=== PATIENT | female | born 1980 | race African-American/Black ===

== ENCOUNTER → 2016-04-18 | Outpatient (CLI) | payer MEDICAID ==
[~2016-04-18] MED LIST: TRAM50TA PO
[2016-04-18 10:07] LABS: MEAN CORPUSCULAR HGB CONC 29.4 % (32.0-36.0)
[2016-04-18 10:46] LABS: BLOOD, URINE LARGE (NEG); COMMENT (UR) CULTURE INDICATED; CULTURE IF INDICATED CULTURE INDICATED; GLUCOSE,URINE NEG (NEG); KETONE, URINE TRACE mg/dL (NEG); NITRITE,URINE NEG (NEG); PH, URINE 5.5 (5.0-8.5); SQUAMOUS EPITHELIAL CELL URINE 3 /hpf (0-5)
[2016-04-18 10:47] LABS: URINE COLOR LIGHT-RED (YELLW/STRAW)
[2016-04-18 10:49] LABS: AUTOMATED NEUTROPHIL # 4.2 TH/MM3 (1.8-7.7); BASOPHIL # 0.1 TH/MM3 (0-0.2); BASOPHIL % 1.2 % (0.0-2.0); EOSINOPHIL # 0.2 TH/MM3 (0-0.4); EOSINOPHIL % 3.7 % (0.0-4.0); HEMATOCRIT 23.2 % (35.0-46.0); LYMPH % 21.8 % (9.0-44.0); LYMPHOCYTE # 1.3 TH/MM3 (1.0-4.8); MEAN CELL VOLUME 67.8 FL (80.0-100.0); MEAN CORPUSCULAR HEMOGLOBIN 19.9 PG (27.0-34.0); NEUT % 67.3 % (16.0-70.0); PLATELET COUNT 374 TH/MM3 (150-450); RED BLOOD COUNT 3.42 MIL/MM3 (4.00-5.30); RED CELL DISTRIBUTION WIDTH 22.1 % (11.6-17.2); WHITE BLOOD COUNT 6.2 TH/MM3 (4.0-11.0)
[2016-04-18 10:55] LABS: HEMO FLAGS AUTO DIFF
[2016-04-18 11:18] LABS: ALKALINE PHOSPHATASE 81 U/L (45-117); ALT (GPT) 16 U/L (10-53); ANION GAP 8 MEQ/L (5-15); AST (GOT) 15 U/L (15-37); BICARBONATE 25.4 MEQ/L (21.0-32.0); BLOOD UREA NITROGEN 9 MG/DL (7-18); CHLORIDE 106 MEQ/L (98-107); GLOMERULAR FILTRATION RATE 100 ML/MIN (>89); GLUCOSE,FASTING 95 MG/DL (74-99); SODIUM (NA) 139 MEQ/L (136-145); TOTAL BILIRUBIN ADULT 0.3 MG/DL (0.2-1.0)
[2016-04-18 11:19] LABS: BHCG SCREEN QUALITATIVE LESS THAN 1 MIU/ML (0-5)
[2016-04-18 12:00] LABS: POLYCHROMASIA 2.2 % (0.0-1.9)
[2016-04-18 12:01] LABS: OVALOCYTES 1+ (NORMAL); SCAN/DIFF AUTO DIFF CONFIRMED; TEARDROP RBCS 1+ (NORMAL)
== END ==
LOC: CPRE 10:00
PROVIDERS: ATTEND Obstetrics & Gynecology Gynecology
DX: Z01.812 Encounter for preprocedural laboratory examination (principal); N93.8 Other specified abnormal uterine and vaginal bleeding
CPT/HCPCS: 36415; 80053; 81001; 84703; 85025; 87086

== ENCOUNTER → 2016-04-21 | Day surgery (SDC) | payer MEDICAID ==
--- NOTE | 2016-04-18 11:17 | MH ---
cc: IDANIA ULLOA,PAULINA SALCIDO,LYNNE GOFF,GUMARO Willis MD DATE OF ADMISSION 04/21/2016 DATE OF 1980 REASON FOR ADMISSION Hysteroscopy and IUD placement. HISTORY The patient is a 36-year-old black female 2, para 1 with a history of dysfunctional uterine bleeding to the point in which she has had to have multiple blood transfusions. She wants to keep her options for further and is not a candidate for hysterectomy or ablation. She also has a history of uterine fibroids and she is status post prior myomectomy. PAST MEDICAL HISTORY Negative for heart, lung, liver disease, hypertension, diabetes, or stroke. PAST SURGICAL HISTORY Abdominal myomectomy OBSTETRICAL HISTORY One vaginal delivery. GYNECOLOGIC HISTORY No STD's or abnormal Pap smears. Periods are once a month and heavy. SOCIAL HISTORY Jonathan has a good social support. No alcohol or drugs. Works full-time. FAMILY HISTORY Contributory ALLERGIES None MEDICATIONS None REVIEW OF SYSTEMS As above. No chest pain, orthopnea, PND, nausea, vomiting, fevers or chills. No vaginal discharge. Heavy menstrual cycles as noted above. PHYSICAL EXAM On her exam, she is afebrile, vital signs stable. VITAL SIGNS: Blood pressure is 120/70. Height 5.3, weight is 187, BMI is 33. The patient's blood pressure is 140/70. GENERAL: The patient alert and oriented no acute distress. No sign of cognitive function or depression. HEENT: Within normal limits. NECK: Supple. No JVD. CHEST: Clear. HEART: Regular rate and rhythm. ABDOMEN: Soft and nontender. No hepatosplenomegaly. No CVA tenderness. PELVIC: Will be detailed under anesthesia. EXTREMITIES: Normal skin without rashes. NEUROLOGIC: Exam nonfocal. No DVT signs. Ultrasound imaging shows a 6 cm fundal fibroid not impinging upon the endometrial cavity. Pap smear March 2016 normal with no signs of intraepithelial lesion or malignancy, HPV negative, Chlamydia and gonorrhea negative. ASSESSMENT Patient with dysfunctional bleeding unresponsive to medicinal therapy wants to maintain fertility options. At this point, we discussed extensively the options for management and treatment. She wants to proceed with hysteroscopy and either Mirena or a Ernestina IUD. We discussed the risks, benefits and alternatives of the planned procedure including damage to surrounding organs, bleeding, infection, possibility that bleeding may not be remedied, also possible damage to surrounding organs. The patient has made an informed choice to proceed. We will check her hematocrit prior to surgery. She was known to have a hemoglobin of 6.7 back in March, suspect this is probably about the same level if not a little bit lower. She is not symptomatic and has tolerated low hematocrits before and unless her hematocrit is below 18, I would not transfuse her at this point. We use antibiotic prophylaxis with Ancef 1 gram IV and sequential compression device for DVT prophylaxis. Anticipate outpatient procedure. MD CAROL Rosas/JONNATHAN /10:59 AM /11:07 AM
[~2016-04-21] VITALS: Ht 160 cm; Wt 86.0 kg
[~2016-04-21] MED LIST changes: +ACETAMINOPHEN 1000 MG/100 ML VIAL IV ONE; +DEXAMETHASONE SOD PHOS 4 MG/ML VIAL ONE; +FAMOTIDINE 20 MG/2 ML VIAL ONE; +INSULIN HUMAN REGULAR 1,000 UNITS/10 ML VIAL SQ PRN; +KETOROLAC TROMETHAMINE 60 MG/2 ML (IM) VIAL IM ONE; +LACTATED RINGER'S 1000 ML IV SCH; +METOCLOPRAMIDE HCL 10 MG/2 ML VIAL ONE; +METOPROLOL TARTRATE 25 MG TAB PO PRN; +MIDAZOLAM HCL 2 MG/2 ML VIAL ONE; +ONDANSETRON HCL 4 MG/2 ML VIAL IV PUSH ONE; +PROPOFOL 200 MG/20 ML AMP IV ONE; +SODIUM CHLORID 0.9% 500 ML IV SCH; +ceFAZolin 1,000 MG/NS 100 ML IV SCH; +fentaNYL CITRATE 250 MCG/5 ML AMP ONE
[2016-04-21 06:27] VITALS: BP 153/89; PULSE 96; RESP 16; TEMP 98.3; O2SAT 100
[2016-04-21 10:05] VITALS: BP 133/82; PULSE 82; RESP 16; TEMP 98.9; O2SAT 99
--- NOTE | 2016-04-25 17:48 | MP ---
cc: NIA ARAUJO,PAULINA RONDON DATE OF SURGERY 04/21/16 PREOPERATIVE DIAGNOSES Dysfunctional bleeding unresponsive to medicinal therapy. POSTOPERATIVE DIAGNOSES Dysfunctional bleeding unresponsive to medicinal therapy. PROCEDURE 1. Hysteroscopy D&C next 2. Mirena IUD placement. SURGEON Wilma Brink MD ANESTHESIA Laryngeal mask BLOOD LOSS Less than 5 mL URINE OUTPUT 100 mL prior to case management specialist [place] staff x1 FLUIDS 1000 crystalloid. FINDINGS Genitalia normal pop Q score Aa is -1, Ap is -1, point C -4, total vaginal length is 10, genital hiatus is eight. Perineal body is 4. Uterus sounds to 10 cm. Uterus is anteverted with palpable uterine fibroids. Hysteroscopy shows normal endometrial cavity with lush endometrium, but no sign of any intrusion by fibroids or polyps. SPECIMENS Endometrial curettage. COMPLICATIONS None DISPOSITION Recovery room stable COUNTS: Needle, sponge count correct. DRAINS None DISPOSITION Recovery room stable. PROPHYLAXIS Antibiotic prophylaxis Ancef 1 gram, DVT prophylaxis sequential compression device. TIME OUT PROCEDURE Per protocol INDICATION FOR PROCEDURE Patient with dysfunctional bleeding unresponsive to medicinal therapy. The patient wanted to keep fertility options open and opted for hysteroscopy with IUD placement. PROCEDURE IN DETAIL The patient was taken to operating room and prepped and draped in fashion appropriate for planned procedure. She was in dorsal lithotomy position with careful attention paid to placement of legs in stirrups to avoid undue stress to sensitive neurovascular structures. Above findings noted. Bladder was drained. Cervix was grasped with the single tooth tenaculum. The cervix required no dilation. The uterus sounded to 10 cm. A 5 mm scope was placed, normal saline used as distension medium with above findings noted. The cavity was relatively smooth with endometrium that was prominent but no sign of any fibroids or polyps. Curettage was obtained without difficulty. IUD placement with a Mirena system was used without complication. Strings were clipped approximately 3 cm from the cervical os. The patient tolerated procedure well, went to recovery in stable condition. Should the patient have issues with continued bleeding and her fertility desires change, she would be a reasonable candidate for a supracervical hysterectomy. MD CAROL Rosas/ /8:48 AM /4:39 PM
== END | disposition home or self-care (01) ==
LOC: HSDC 05:54
PROVIDERS: ATTEND Obstetrics & Gynecology Gynecology
DX: N93.8 Other specified abnormal uterine and vaginal bleeding (principal)
CPT/HCPCS: 00952; 58300; 58558; 88305; J0131; J0690; J1100; J1885; J2250; J2405; J2765; J3010

== ENCOUNTER 2016-06-23 10:52 | Emergency (ER) | payer MEDICAID ==
[~2016-06-23] VITALS: Ht 162.6 cm; Wt 81.0 kg
[2016-06-23 11:01] VITALS: BP 131/88; PULSE 109; RESP 18; TEMP 98.5; O2SAT 100
[2016-06-23] MEDS ORDERED: ONDANSETRON HCL 4 MG/2 ML VIAL IM ONE (11:15)
[2016-06-23] MEDS ORDERED: MORPHINE SULFATE 4 MG/ML INJ IM ONE (11:15)
--- NOTE | 2016-06-23 11:25 | PD ---
HPI Chief Complaint: Director [employer] Problem/Complaint Time Seen by Provider: 11:07 Travel History International Travel<30 days: No Contact w/Intl Traveler<30days: No Traveled to known affect area: No History of Present Illness HPI The patient was seen and examined in the presence of the nurse. She complains of pelvic cramping and vaginal bleeding. Started this morning at 7 AM. Duration is 4 hours. It is her normal scheduled time to have a menstrual period and she always gets pain and cramps with her period but this was worse than usual so she came to the ER. No discharge other than blood. No fever or vomiting. Severity is moderate. No alleviating factors PFSH Past Medical History Autoimmune Disease: No Cancer: No Cardiovascular Problems: No Diabetes: No Endocrine: No Genitourinary: No Hepatitis: No Hiatal Hernia: No Immune Disorder: No Musculoskeletal: No Neurologic: No Psychiatric: No Reproductive: No Respiratory: No Thyroid Disease: No ?: Not LMP: has iud Past Surgical History AICD: No Cardiac Surgery: Yes Gynecologic Surgery: Yes (abd myomectomy) Joint Replacement: No Pacemaker: No Social History Alcohol Use: No Tobacco Use: No Substance Use: No Allergies-Medications (Allergen,Severity, Reaction): Coded Allergies: No Known Allergies (Verified , 06/23/16) Reported Meds & Prescriptions Reported Meds & Active Scripts Active Tramadol (Tramadol HCl) 50 Mg Tab 50 Mg PO Q6H PRN Review of Systems General / Constitutional: No: Fever Eyes: No: Visual changes HENT: No: Headaches Cardiovascular: No: Chest Pain or Discomfort Respiratory: No: Shortness of Breath Gastrointestinal: No: Abdominal Pain Genitourinary: Positive: Pelvic Pain, Vaginal Bleeding, No: Dysuria Musculoskeletal: No: Pain Skin: No Rash Neurologic: No: Weakness Psychiatric: No: Depression Endocrine: No: Polydipsia Hematologic/Lymphatic: No: Easy Bruising Physical Exam Narrative GENERAL: Well-nourished, well-developed patient with pelvic cramping. SKIN: Focused skin assessment reveals no rash and nodules. Skin is Warm and dry. HEAD: Atraumatic. Normocephalic. EYES: Pupils equal and round. No scleral icterus. No injection or drainage. ENT: No nasal bleeding or discharge. Mucous membranes pink and moist. NECK: Trachea midline. No JVD. CARDIOVASCULAR: Regular rate and rhythm. No murmur appreciated. RESPIRATORY: No accessory muscle use. Clear to auscultation. Breath sounds equal bilaterally. GASTROINTESTINAL: Abdomen soft, has some bilateral lower quadrant tenderness without rebound or guarding, nondistended. Hepatic and splenic margins not palpable. MUSCULOSKELETAL: No obvious deformities. No clubbing. No cyanosis. No edema. NEUROLOGICAL: Awake and alert. No obvious cranial nerve deficits. Motor grossly within normal limits. Normal speech. PSYCHIATRIC: Appropriate mood and affect; insight and judgment normal. Data Data Last Documented VS Vital Signs Date Time Temp Pulse Resp B/P Pulse Ox O2 Delivery O2 Flow Rate FiO2 06/23/16 11:28 94 18 100 Room Air 06/23/16 11:01 98.5 131/88 Orders Ed Urine Pregnancytest Poc (06/23/16 11:14) Ondansetron Inj (Zofran Inj) (06/23/16 11:15) Morphine Inj (Morphine Inj) (06/23/16 11:15) MDM Medical Decision Making Medical Screen Exam Complete: Yes Emergency Medical Condition: Yes Medical Record Reviewed: Yes Differential Diagnosis Menstrual cramps, ectopic , threatened Narrative Course I have reviewed the patient's electronic medical record. Patient had IUD placement in April and CLINICAL DOCUMENTATION SPEC follow-up in May. Has chronic anemia Doesn't have symptoms consistent with infection Has abrupt onset of pelvic cramping and bleeding at menstrual period onset which is typical for her but worse today Urine is negative I gave her injection of morphine and Zofran for symptom relief On recheck she feels much better,tramadol prescribed. Diagnosis Primary Impression: Pelvic pain Additional Impression: Vaginal bleeding Additional Instructions: The patient was advised to follow up with their physician and return if they worsen. The patient was warned about potential sedation for the medications they will receive on prescription. Med/Other Pt SpecificInfo: Prescription(s) given Scripts Tramadol 50 Mg Tab50 Mg PO Q6H PRN (PAIN) #20 TAB Ref 0 Prov:Virgilio Cain MD 06/23/16 Disposition: 01 DISCHARGE HOME Condition: Stable Virgilio Cain MD June 23, 2016 11:25
[2016-06-23 11:28] VITALS: PULSE 94; RESP 18; O2SAT 100
[2016-06-23] MEDS ORDERED: TRAM50TA PO (12:15)
[2016-06-23 12:31] VITALS: BP 144/80
== END 2016-06-23 12:31 | disposition home or self-care (01) ==
LOC: PHED 10:52
DX: R10.2 Pelvic and perineal pain (principal); N93.9 Abnormal uterine and vaginal bleeding, unspecified; Z86.2 Personal history of diseases of the blood and blood-forming organs and certain disorders involving the immune mechanism
CPT/HCPCS: 84703; 96372; 99283; J2270; J2405

== ENCOUNTER 2017-01-20 14:02 | Observation (INO) | payer MEDICAID ==
[2017-01-20] VITALS (8 sets, daily range): BP systolic 130–148; BP diastolic 65–82; PULSE 84–104; RESP 16–18; TEMP 98.3–98.7; O2SAT 98–100
[~2017-01-20] VITALS: Ht 160 cm; Wt 80.0 kg
[~2017-01-20 14:02] MED LIST changes: -ACETAMINOPHEN 1000 MG/100 ML VIAL IV ONE; -DEXAMETHASONE SOD PHOS 4 MG/ML VIAL ONE; -FAMOTIDINE 20 MG/2 ML VIAL ONE; -INSULIN HUMAN REGULAR 1,000 UNITS/10 ML VIAL SQ PRN; -KETOROLAC TROMETHAMINE 60 MG/2 ML (IM) VIAL IM ONE; -LACTATED RINGER'S 1000 ML IV SCH; -METOCLOPRAMIDE HCL 10 MG/2 ML VIAL ONE; -METOPROLOL TARTRATE 25 MG TAB PO PRN; -MIDAZOLAM HCL 2 MG/2 ML VIAL ONE; -ONDANSETRON HCL 4 MG/2 ML VIAL IV PUSH ONE; -PROPOFOL 200 MG/20 ML AMP IV ONE; -SODIUM CHLORID 0.9% 500 ML IV SCH; -ceFAZolin 1,000 MG/NS 100 ML IV SCH; -fentaNYL CITRATE 250 MCG/5 ML AMP ONE
--- NOTE | 2017-01-20 14:44 | PD ---
HPI Chief Complaint: Chest Pain Time Seen by Provider: 14:29 Travel History International Travel<30 days: No Contact w/Intl Traveler<30days: No Traveled to known affect area: No History of Present Illness HPI 37-year-old Afro-German female presents the emergency department with increased dyspnea and chest discomfort from feeling short of breath in the past several days. Patient has history of requiring blood transfusions for low hematocrit/hemoglobin secondary to uterine bleeding. Patient states that she's had hemoglobins as low as 4 in the past. Her last transfusion was approximately 2 months ago. Patient states her last period ended 2 days ago but was heavy with clots. Patient denies abdominal pain or vaginal pain or discharge. He has no fever or chills. Patient states this is how she usually feels when she is anemic. Her chest pain is minimal, but she is dyspneic with any type of exertion. She has no nausea or vomiting. She has no urinary symptoms. She has no known drug allergies. PFSH Past Medical History Autoimmune Disease: No Cancer: No Cardiovascular Problems: No Diabetes: No Endocrine: No Gastrointestinal Disorders: Yes (diverticulitis 6 months ago) Genitourinary: No Hepatitis: No Hiatal Hernia: No Immune Disorder: No Musculoskeletal: No Neurologic: No Psychiatric: No Reproductive: No Respiratory: No Thyroid Disease: No ?: Not LMP: 01/12/17 Past Surgical History AICD: No Cardiac Surgery: Yes Gynecologic Surgery: Yes (abd myomectomy) Joint Replacement: No Pacemaker: No Other Surgery: Yes Social History Alcohol Use: No Tobacco Use: No Substance Use: No Allergies-Medications (Allergen,Severity, Reaction): Coded Allergies: No Known Allergies (Verified , 11/13/16) Reported Meds & Prescriptions Reported Meds & Active Scripts Active Tramadol (Tramadol HCl) 50 Mg Tab 50 Mg PO Q6H PRN Review of Systems Except as stated in HPI: all other systems reviewed are Neg General / Constitutional: No: Fever, Chills Eyes: No: Visual changes HENT: Positive: Lightheadedness, No: Headaches, Vertigo, Sore Throat, Rhinitis , Rhinorrhea, Congestion, Nosebleed, Neck Stiffness, Neck Pain, Dental Difficulties, Earache Cardiovascular: Positive: Dyspnea on exertion, No: Chest Pain or Discomfort, Palpitations, Irregular Rhythm, Tachycardia, Diaphoresis, Syncope, Varicosities , Edema, Cyanosis, Varicosities, Phlebitis, Claudication Respiratory: Positive: Shortness of Breath Gastrointestinal: No: Nausea, Vomiting, Diarrhea, Abdominal Pain Genitourinary: Positive: Vaginal Bleeding (history of noncurrent.), No: Dysuria Musculoskeletal: No: Pain Skin: No Rash Neurologic: No: Weakness Psychiatric: No: Depression Endocrine: No: Polydipsia Hematologic/Lymphatic: No: Easy Bruising Physical Exam Narrative GENERAL: Patient appears in no acute distress. SKIN: Warm and dry. Normal color. Normal turgor. HEAD: Atraumatic. Normocephalic. EYES: Pupils equal and round. No scleral icterus. Moderate conjunctival pallor is noted or drainage. ENT: No nasal bleeding or discharge. Mucous membranes pink and moist. Pharynx is clear. Airway is patent. NECK: Trachea midline. Supple and nontender. CARDIOVASCULAR: Tachycardic rate and normal rhythm. RESPIRATORY: No accessory muscle use. Clear to auscultation. Breath sounds equal bilaterally. MUSCULOSKELETAL: Extremities without clubbing, cyanosis, or edema. No obvious deformities. Negative Homans sign. NEUROLOGICAL: Awake and alert. No obvious cranial nerve deficits. Motor grossly within normal limits. Five out of 5 muscle strength in the arms and legs. Normal speech. PSYCHIATRIC: Appropriate mood and affect; insight and judgment normal. Data Data Last Documented VS Vital Signs Date Time Temp Pulse Resp B/P (MAP) Pulse Ox O2 Delivery O2 Flow Rate FiO2 01/20/17 14:40 16 100 Room Air 01/20/17 14:04 98.7 104 Orders Orders Electrocardiogram (01/20/17 ) Type And Screen (01/20/17 14:33) Red Blood Cells (Rbc) (01/20/17 14:33) Complete Blood Count With Diff (01/20/17 14:33) Comprehensive Metabolic Panel (01/20/17 14:33) Prothrombin Time / Inr (Pt) (01/20/17 14:33) Act Partial Throm Time (Ptt) (01/20/17 14:33) Urinalysis - C+S If Indicated (01/20/17 14:33) Iv Access Insert/Monitor (01/20/17 14:33) Ecg Monitoring (01/20/17 14:33) Oximetry (01/20/17 14:33) Electrocardiogram (01/20/17 14:33) Ed Urine Pregnancytest Poc (01/20/17 14:33) Blood Product Administration (01/20/17 15:41) Sodium Chlor 0.9% 250 Ml Inj (Ns 250 Ml (01/20/17 15:45) Diphenhydramine (Benadryl) (01/20/17 15:45) Diphenhydramine (Benadryl) (01/20/17 15:45) Acetaminophen (Tylenol) (01/20/17 15:45) Acetaminophen (Tylenol) (01/20/17 15:45) Admit Order (Ed Use Only) (01/20/17 16:19) Labs Laboratory Tests Test 01/20/17 14:40 01/20/17 14:45 Urine Color YELLOW Urine Turbidity HAZY Urine pH 7.5 Urine Specific [place] 1.025 Urine Protein 30 mg/dL Urine Glucose (UA) NEG mg/dL Urine Ketones NEG mg/dL Urine Occult Blood NEG Urine Nitrite NEG Urine Bilirubin NEG Urine Urobilinogen LESS THAN 2.0 MG/DL Urine Leukocyte Esterase NEG Urine WBC 4 /hpf Urine Squamous Epithelial Cells 11 /hpf Urine Mucus MANY /lpf Microscopic Urinalysis Comment CULT NOT INDICATED White Blood Count 5.3 TH/MM3 Red Blood Count 2.80 MIL/MM3 Hemoglobin 6.4 GM/DL Hematocrit 20.4 % Mean Corpuscular Volume 72.7 FL Mean Corpuscular Hemoglobin 22.8 PG Mean Corpuscular Hemoglobin Concent 31.3 % Red Cell Distribution Width 23.4 % Platelet Count 468 TH/MM3 Mean Platelet Volume 7.8 FL Neutrophils (%) (Auto) 69.3 % Lymphocytes (%) (Auto) 21.9 % Monocytes (%) (Auto) 5.8 % Eosinophils (%) (Auto) 1.9 % Basophils (%) (Auto) 1.1 % Neutrophils # (Auto) 3.7 TH/MM3 Lymphocytes # (Auto) 1.2 TH/MM3 Monocytes # (Auto) 0.3 TH/MM3 Eosinophils # (Auto) 0.1 TH/MM3 Basophils # (Auto) 0.1 TH/MM3 CBC Comment AUTO DIFF Differential Comment AUTO DIFF CONFIRMED Platelet Estimate HIGH Platelet Morphology Comment NORMAL Ovalocytes 1+ Prothrombin Time 10.2 SEC Prothromb Time International Ratio 1.0 RATIO Activated Partial Thromboplast Time 21.9 SEC Blood Urea Nitrogen 11 MG/DL Creatinine 0.70 MG/DL Random Glucose 90 MG/DL Total Protein 7.6 GM/DL Albumin 3.2 GM/DL Calcium Level 8.6 MG/DL Alkaline Phosphatase 78 U/L Aspartate Amino Transf (AST/SGOT) 30 U/L Alanine Aminotransferase (ALT/SGPT) 21 U/L Total Bilirubin 0.2 MG/DL Sodium Level 139 MEQ/L Potassium Level 4.0 MEQ/L Chloride Level 106 MEQ/L Carbon Dioxide Level 26.2 MEQ/L Anion Gap 7 MEQ/L Estimat Glomerular Filtration Rate 113 ML/MIN [facility] Medical Decision Making Medical Screen Exam Complete: Yes Emergency Medical Condition: Yes Medical Record Reviewed: Yes Differential Diagnosis History of heavy vaginal bleeding. Shortness of breath. Symptomatic anemia. Narrative Course Patient appears medically stable at time of exam. EKG is ordered. Labs ordered including CBC, CMP, coagulation studies, urinalysis, and urine test. Type and screen of 2 units of RBCs are ordered. CBC shows hemoglobin of 6.4, hematocrit of 20.4. Urinalysis is unremarkable. She is not . CMP shows no acute abnormalities. Hospitalist is called for admission. First unit of blood is ordered to be administered. Patient discussed with Dr. Fagan, who accepted the patient for observation. Diagnosis Primary Impression: Symptomatic anemia Additional Impression: Vaginal bleeding Admitting Information Admitting Physician Requests: Observation Condition: Stable Duran Chao Jan 20, 2017 14:44
[2017-01-20 15:12] LABS: AUTOMATED NEUTROPHIL # 3.7 TH/MM3 (1.8-7.7); BASOPHIL # 0.1 TH/MM3 (0-0.2); BASOPHIL % 1.1 % (0.0-2.0); EOSINOPHIL # 0.1 TH/MM3 (0-0.4); EOSINOPHIL % 1.9 % (0.0-4.0); LYMPH % 21.9 % (9.0-44.0); LYMPHOCYTE # 1.2 TH/MM3 (1.0-4.8); MEAN CELL VOLUME 72.7 FL (80.0-100.0); MEAN CORPUSCULAR HEMOGLOBIN 22.8 PG (27.0-34.0); MEAN CORPUSCULAR HGB CONC 31.3 % (32.0-36.0); MONO % 5.8 % (0.0-8.0); NEUT % 69.3 % (16.0-70.0); PLATELET COUNT 468 TH/MM3 (150-450); RED CELL DISTRIBUTION WIDTH 23.4 % (11.6-17.2); WHITE BLOOD COUNT 5.3 TH/MM3 (4.0-11.0)
[2017-01-20 15:13] LABS: HEMO FLAGS AUTO DIFF
[2017-01-20 15:23] LABS: BLOOD, URINE NEG (NEG); COMMENT (UR) CULT NOT INDICATED; CULTURE IF INDICATED CULT NOT INDICATED; GLUCOSE,URINE NEG (NEG); KETONE, URINE NEG (NEG); MUCUS URINE MANY /lpf (OCC); NITRITE,URINE NEG (NEG); PH, URINE 7.5 (5.0-8.5); SQUAMOUS EPITHELIAL CELL URINE 11 /hpf (0-5); URINE COLOR YELLOW (YELLW/STRAW)
[2017-01-20 15:24] LABS: HEMATOCRIT 20.4 % (35.0-46.0)
[2017-01-20 15:27] LABS: APTT (PATIENT) 21.9 SEC (24.3-30.1); PROTHROMBIN TIME - PATIENT 10.2 SEC (9.8-11.6)
[2017-01-20 15:35] LABS: ALT (GPT) 21 U/L (10-53); ANION GAP 7 MEQ/L (5-15); AST (GOT) 30 U/L (15-37); BICARBONATE 26.2 MEQ/L (21.0-32.0); BLOOD UREA NITROGEN 11 MG/DL (7-18); CHLORIDE 106 MEQ/L (98-107); GLOMERULAR FILTRATION RATE 113 ML/MIN (>89); SODIUM (NA) 139 MEQ/L (136-145)
[2017-01-20 15:38] LABS: ALKALINE PHOSPHATASE 78 U/L (45-117); TOTAL BILIRUBIN ADULT 0.2 MG/DL (0.2-1.0)
[2017-01-20 15:40] LABS: OVALOCYTES 1+ (NORMAL); PLATELET ESTIMATE SMEAR HIGH (NORMAL); PLATELET MORPHOLOGY NORMAL (NORMAL); SCAN/DIFF AUTO DIFF CONFIRMED
[2017-01-20] MEDS ORDERED: diphenhydrAMINE HCL 25 MG CAP PO PRN (15:45)
[2017-01-20] MEDS ORDERED: diphenhydrAMINE HCL 25 MG CAP PO ONE (15:45)
[2017-01-20] MEDS ORDERED: SODIUM CHLOR 0.9% 250 ML INJ 250 ML IV ONE (15:45)
[2017-01-20] MEDS ORDERED: ACETAMINOPHEN 325 MG TAB PO ONE (15:45)
[2017-01-20] MEDS ORDERED: ACETAMINOPHEN 325 MG TAB PO PRN ×3 (15:45→17:15)
[2017-01-20] MEDS ORDERED: PROCHLORPERAZINE 25 MG SUPP RECTAL PRN (17:15)
[2017-01-20] MEDS ORDERED: SENNOSIDES 8.6 MG TAB PO PRN (17:15)
[2017-01-20] MEDS: FAMOTIDINE 20 MG TAB PO SCH ×2 (17:15→21:00)
[2017-01-20] MEDS ORDERED: oxyCODONE/ACETAMINOPHEN 5 MG/325 MG TAB PO PRN (17:15)
[2017-01-20] MEDS ORDERED: MORPHINE SULFATE 4 MG/ML INJ IV PUSH PRN ×2 (17:15)
[2017-01-20] MEDS ORDERED: ONDANSETRON HCL 4 MG/2 ML VIAL IVP PRN (17:15)
[2017-01-20] MEDS ORDERED: BISACODYL 10 MG SUPP RECTAL PRN (17:15)
[2017-01-20] MEDS ORDERED: SODIUM CHLORIDE 0.9% FLUSH 10 ML FLUSH IV FLUSH PRN (17:15)
[2017-01-20] MEDS ORDERED: TEMAZEPAM 15 MG CAP PO PRN (17:15)
[2017-01-20] MEDS ORDERED: MAGNESIUM HYDROXIDE SUSP 30 ML CUP PO PRN (17:15)
[2017-01-20] MEDS ORDERED: NALOXONE HCL 0.4 MG/ML AMP IV PUSH PRN (17:15)
[2017-01-20] MEDS ORDERED: oxyCODONE/ACETAMINOPHEN 10 MG/325 MG TAB PO PRN (17:15)
[2017-01-20] MEDS ORDERED: LACTULOSE SYRUP 20 GM/30 ML CUP PO PRN (17:15)
--- NOTE | 2017-01-20 17:17 | HHI.HP ---
[facility] Primary [facility] Physician Beverley Guzman D.O. Admission Diagnosis symptomatic anemia Diagnoses: Chief Complaint: Chest pain and symptomatic anemia Travel History International Travel<30 Days: No Contact w/Intl Traveler <30 Da: No Traveled to Known Affected Are: No History of Present Illness Patient is a 37-year-old female. Who presented to the emergency department with increased dyspnea and chest discomfort from feeling short of breath over the past several days. Patient in the past has required blood transfusions for low hemoglobin. She's had issues with uterine bleeding. Patient states that she's had hemoglobins as low as 4 in the past. Last transfusion was about 2 months ago. Patient states that her last period ended 2 days ago but was heavy with clots. Patient denies any abdominal pain or vaginal pain or discharge. She has no fever or chills. Patient states that she is how she normally feels when she is anemic. Chest pain is minimal she has shortness of breath. With any exertion. She has had no nausea or vomiting. She has had no urinary symptoms does not have any no known drug allergies that she knows of Review of Systems Constitutional: COMPLAINS OF: Fatigue, Dizziness, DENIES: Diaphoretic episodes , Fever, Weight gain, Weight loss, Chills, Night Sweats Endocrine: COMPLAINS OF: Abnorml menstrual pattern, DENIES: Heat/cold intolerance, Polydipsia, Polyuria Eyes: DENIES: Blurred vision, Diplopia, Eye inflammation, Eye pain, Vision loss Ears, nose, mouth, throat: DENIES: Tinnitus, Hearing loss, Vertigo Respiratory: COMPLAINS OF: Shortness of breath, DENIES: Apneas, Cough, Snoring , Wheezing Cardiovascular: COMPLAINS OF: Chest pain, Dyspnea on Exertion, DENIES: Palpitations, Syncope Gastrointestinal: DENIES: Abdominal pain, Black stools, Bloody stools, Anorexia Genitourinary: COMPLAINS OF: Abnormal vaginal bleeding, DENIES: Dysmenorrhea, Dyspareunia, Sexual dysfunction, Urgency, Hematuria, Dysuria Musculoskeletal: DENIES: Joint pain, Muscle aches Integumentary: DENIES: Abnormal pigmentation, Pruritus Hematologic/lymphatic: DENIES: Bruising, Lymphadenopathy Immunologic/allergic: DENIES: Eczema, Urticaria Neurologic: DENIES: Abnormal gait, Headache, Localized weakness Psychiatric: DENIES: Anxiety, Confusion, Mood changes, Depression Except as stated in HPI: all other systems reviewed are Neg Past Family Social History Past Medical History History of diverticulitis Dysfunctional uterine bleeding History of issues with anemia requiring transfusions and history of antibodies in her blood Possible hypertension Past Surgical History Patient has had in a abdominal myomectomy or fibroid surgery. Has had an IUD placement. D&C Denies any other surgery Reported Medications Reported Meds & Active Scripts Active Tramadol (Tramadol HCl) 50 Mg Tab 50 Mg PO Q6H PRN Allergies: Coded Allergies: No Known Allergies (Verified , 11/13/16) Active Ordered Medications Current Medications Sodium Chloride 250 ml @ 15 mls/hr ONCE ONCE IV ; Start 01/20/17 at 15:45; Stop 01/21/17 at 08:24 Diphenhydramine HCl (Benadryl) 25 mg ONCE ONCE PO ; Start 01/20/17 at 15:45; Stop 01/20/17 at 15:46; Status DC Diphenhydramine HCl (Benadryl) 25 mg UNSCH X1 PRN PO ITCHING; Start 01/20/17 at 15:45; Stop 01/23/17 at 15:44 Acetaminophen (Tylenol) 650 mg ONCE ONCE PO ; Start 01/20/17 at 15:45; Stop at 15:46; Status DC Acetaminophen (Tylenol) 650 mg UNSCH X1 PRN PO FEVER; Start 01/20/17 at 15:45; Stop 01/23/17 at 15:44 Family History Hypertension in the family thyroid disease in the family and diabetes in the family Social History Social alcohol. Denies any tobacco or illicits Physical Exam Vital Signs Vital Signs Date Time Temp Pulse Resp B/P (MAP) Pulse Ox O2 Delivery O2 Flow Rate FiO2 01/20/17 14:40 16 100 Room Air 01/20/17 14:40 16 100 Room Air 01/20/17 14:04 98.7 104 18 148/80 (102) 100 Physical Exam GENERAL: This is a well-nourished, well-developed patient, in no apparent distress. SKIN: No rashes, ecchymoses or lesions. Cool and dry. HEAD: Atraumatic. Normocephalic. No temporal or scalp tenderness. EYES: Pupils equal round and reactive. Extraocular motions intact. No scleral icterus. No injection or drainage. ENT: Nose without bleeding, purulent drainage or septal hematoma. Throat without erythema, tonsillar hypertrophy or exudate. Uvula midline. Airway patent. NECK: Trachea midline. No JVD or lymphadenopathy. Supple, nontender, no meningeal signs. CARDIOVASCULAR: Regular rate and rhythm without murmurs, gallops, or rubs. RESPIRATORY: Clear to auscultation. Breath sounds equal bilaterally. No wheezes , rales, or rhonchi. GASTROINTESTINAL: Abdomen soft, non-tender, nondistended. No hepato-splenomegaly , or palpable masses. No guarding. MUSCULOSKELETAL: Extremities without clubbing, cyanosis, or edema. No joint tenderness, effusion, or edema noted. No calf tenderness. Negative Homans sign bilaterally. NEUROLOGICAL: Awake and alert. Cranial nerves II through XII intact. Motor and sensory grossly within normal limits. Five out of 5 muscle strength in all muscle groups. Normal speech. Laboratory Laboratory Tests Test 01/20/17 14:40 01/20/17 14:45 Urine Color YELLOW Urine Turbidity HAZY Urine pH 7.5 Urine Specific [place] 1.025 Urine Protein 30 Urine Glucose (UA) NEG Urine Ketones NEG Urine Occult Blood NEG Urine Nitrite NEG Urine Bilirubin NEG Urine Urobilinogen LESS THAN 2.0 Urine Leukocyte Esterase NEG Urine WBC 4 Urine Squamous Epithelial Cells 11 Urine Mucus MANY Microscopic Urinalysis Comment CULT NOT INDICATED White Blood Count 5.3 Red Blood Count 2.80 Hemoglobin 6.4 Hematocrit 20.4 Mean Corpuscular Volume 72.7 Mean Corpuscular Hemoglobin 22.8 Mean Corpuscular Hemoglobin Concent 31.3 Red Cell Distribution Width 23.4 Platelet Count 468 Mean Platelet Volume 7.8 Neutrophils (%) (Auto) 69.3 Lymphocytes (%) (Auto) 21.9 Monocytes (%) (Auto) 5.8 Eosinophils (%) (Auto) 1.9 Basophils (%) (Auto) 1.1 Neutrophils # (Auto) 3.7 Lymphocytes # (Auto) 1.2 Monocytes # (Auto) 0.3 Eosinophils # (Auto) 0.1 Basophils # (Auto) 0.1 CBC Comment AUTO DIFF Differential Comment AUTO DIFF CONFIRMED Platelet Estimate HIGH Platelet Morphology Comment NORMAL Ovalocytes 1+ Prothrombin Time 10.2 Prothromb Time International Ratio 1.0 Activated Partial Thromboplast Time 21.9 Blood Urea Nitrogen 11 Creatinine 0.70 Random Glucose 90 Total Protein 7.6 Albumin 3.2 Calcium Level 8.6 Alkaline Phosphatase 78 Aspartate Amino Transf (AST/SGOT) 30 Alanine Aminotransferase (ALT/SGPT) 21 Total Bilirubin 0.2 Sodium Level 139 Potassium Level 4.0 Chloride Level 106 Carbon Dioxide Level 26.2 Anion Gap 7 Estimat Glomerular Filtration Rate 113 Result Diagram: 01/20/17 1445 01/20/17 144 Caprini VTE Risk Assessment Caprini VTE Risk Assessment: No/Low Risk (score <= 1) Caprini Risk Assessment Model Point Value = 1 Point Value = 2 Point Value = 3 Point Value = 5 Age 41-60 Minor surgery BMI > 25 kg/m2 Swollen legs Varicose veins or History of unexplained or recurrent spontaneous Oral contraceptives or hormone replacement Sepsis (< 1 month) Serious lung disease, including pneumonia (< 1 month) Abnormal pulmonary function Acute myocardial infarction Congestive heart failure (< 1 month) History of inflammatory bowel disease Medical patient at bed rest Age 61-74 Arthroscopic surgery Major open surgery (> 45 min) Laparoscopic surgery (> 45 min) Malignancy Confined to bed (> 72 hours) Immobilizing plaster cast Central venous access Age >= 75 History of VTE Family history of VTE Factor V Leiden Prothrombin [id number] Lupus anticoagulant Anticardiolipin antibodies Elevated serum homocysteine Heparin-induced thrombocytopenia Other congenital or acquired thrombophilia Stroke (< 1 month) Elective arthroplasty Hip, pelvis, or leg fracture Acute spinal cord injury (< 1 month) Prophylaxis Regimen Total Risk Factor Score Risk Level Prophylaxis Regimen 0-1 Low Early ambulation 2 Moderate Order ONE of the following: *Sequential Compression Device (SCD) *Heparin 5000 units SQ BID 3-4 Higher Order ONE of the following medications: *Heparin 5000 units SQ TID *Enoxaparin/Lovenox 40 mg SQ daily (WT < 150 kg, CrCl > 30 mL/min) *Enoxaparin/Lovenox 30 mg SQ daily (WT < 150 kg, CrCl > 10-29 mL/min) *Enoxaparin/Lovenox 30 mg SQ BID (WT < 150 kg, CrCl > 30 mL/min) AND/OR *Sequential Compression Device (SCD) 5 or more Highest Order ONE of the following medications: *Heparin 5000 units SQ TID (Preferred with Epidurals) *Enoxaparin/Lovenox 40 mg SQ daily (WT < 150 kg, CrCl > 30 mL/min) *Enoxaparin/Lovenox 30 mg SQ daily (WT < 150 kg, CrCl > 10-29 mL/min) *Enoxaparin/Lovenox 30 mg SQ BID (WT < 150 kg, CrCl > 30 mL/min) AND *Sequential Compression Device (SCD) Assessment and Plan Assessment and Plan Anemia due to severe dysfunctional uterine bleeding with heavy clots With a hemoglobin of 6.4 we will transfuse 2 units Chest pain probably secondary to low hemoglobin we'll trend troponins and cardiac enzymes. Get EKGs. And an echo and will follow no need for cardiology at this time Dysfunctional uterine bleeding will need outpatient follow-up with ADJUNCT PROFESSOR We'll transfuse 2 units packed red blood cells with Benadryl and Tylenol prior to the transfuse will continue pain control and check a.m. labs we'll check an anemia workup. Even though I suspect that the anemia is due to severe dysfunctional uterine bleeding Continue on DVT prophylaxis with SCDs and GI prophylaxis with Pepcid Code Status Full code Discussed Condition With Discussed with the ER and RN and family and patient Roberto Fagan DO Jan 20, 2017 17:17
[2017-01-20 18:02] LABS: RETIC % 1.9 % (0.4-3.0)
[2017-01-20 18:03] LABS: REVIEW FLAG FINAL
[2017-01-20 19:27] LABS: CREATINE KINASE 122 U/L (26-192); FERRITIN 3 NG/ML (8-252); LDH SERUM 211 U/L (84-246); TRANSFERRIN IRON PROFILE 264 MG/DL (200-360)
[2017-01-20] MEDS: SODIUM CHLORIDE 0.9% FLUSH 10 ML FLUSH IV FLUSH SCH (21:00)
[2017-01-20] MEDS: DOCUSATE SODIUM 50 MG/SENNA 8.6 MG TAB PO SCH (21:00)
[2017-01-21 03:44] VITALS: BP 170/86; PULSE 84; RESP 18; TEMP 98.6; O2SAT 99
[2017-01-21 05:15] LABS: AUTOMATED NEUTROPHIL # 6.4 TH/MM3 (1.8-7.7); BASOPHIL # 0.1 TH/MM3 (0-0.2); BASOPHIL % 1.3 % (0.0-2.0); EOSINOPHIL % 0.5 % (0.0-4.0); HEMATOCRIT 25.1 % (35.0-46.0); HEMO FLAGS DIFF FINAL; LYMPH % 14.3 % (9.0-44.0); LYMPHOCYTE # 1.2 TH/MM3 (1.0-4.8); MEAN CELL VOLUME 75.8 FL (80.0-100.0); MEAN CORPUSCULAR HEMOGLOBIN 25.3 PG (27.0-34.0); MEAN CORPUSCULAR HGB CONC 33.4 % (32.0-36.0); MONO % 5.2 % (0.0-8.0); NEUT % 78.7 % (16.0-70.0); PLATELET COUNT 420 TH/MM3 (150-450); RED BLOOD COUNT 3.31 MIL/MM3 (4.00-5.30); RED CELL DISTRIBUTION WIDTH 22.3 % (11.6-17.2); WHITE BLOOD COUNT 8.1 TH/MM3 (4.0-11.0)
[2017-01-21 05:41] LABS: ALT (GPT) 18 U/L (10-53); ANION GAP 8 MEQ/L (5-15); AST (GOT) 18 U/L (15-37); BICARBONATE 25.5 MEQ/L (21.0-32.0); BLOOD UREA NITROGEN 13 MG/DL (7-18); CHLORIDE 106 MEQ/L (98-107); GLOMERULAR FILTRATION RATE 117 ML/MIN (>89); MAGNESIUM 1.9 MG/DL (1.5-2.5); POTASSIUM 3.7 MEQ/L (3.5-5.1); SODIUM (NA) 139 MEQ/L (136-145)
[2017-01-21 05:49] LABS: ALKALINE PHOSPHATASE 80 U/L (45-117); TOTAL BILIRUBIN ADULT 1.1 MG/DL (0.2-1.0)
[2017-01-21 07:43] VITALS: BP 145/89; PULSE 78; RESP 16; TEMP 98.3; O2SAT 98
[2017-01-21] MEDS: FAMOTIDINE 20 MG TAB PO SCH (09:17)
[2017-01-21] MEDS: SODIUM CHLORIDE 0.9% FLUSH 10 ML FLUSH IV FLUSH SCH (09:17)
[2017-01-21] MEDS: DOCUSATE SODIUM 50 MG/SENNA 8.6 MG TAB PO SCH (09:17)
[2017-01-21 12:02] VITALS: BP 155/91; PULSE 85; RESP 16; TEMP 98; O2SAT 100
--- NOTE | 2017-01-21 12:29 | EKG ---
Date Performed: 01/20/2017 Time Performed: 18:20:05 PTAGE: 37 years EKG: Sinus rhythm NORMAL ECG PREVIOUS TRACING : 01/20/2017 14.54 Since previous tracing, no significant change. DOCTOR: Jeremy Amaya Interpretating Date/Time 01/21/2017 12:28:23
--- NOTE | 2017-01-21 12:29 | EKG ---
Date Performed: 01/20/2017 Time Performed: 14:54:14 PTAGE: 37 years EKG: Sinus rhythm NORMAL ECG NO PREVIOUS TRACING DOCTOR: Jeremy Amaya Interpretating Date/Time 01/21/2017 12:27:51
--- NOTE | 2017-01-21 14:21 | ECHRPT ---
Indication: chest pain CONCLUSIONS The left ventricular systolic function is normal with an estimated ejection fraction in the range of 60-65%. Mild concentric left ventricular hypertrophy. Trace mitral valve regurgitation. There is trace tricuspid valve regurgitation. BP: 170 / 86 HR: 114 Rhythm: Sinus MEASUREMENTS (Male / Female) Normal Values Technical Quality:Good 2D ECHO LV Diastolic Diameter PLAX 3.9 cm 4.2 - 5.9 / 3.9 - 5.3 cm LV Systolic Diameter PLAX 2.5 cm IVS Diastolic Thickness 1.2 cm 0.6 - 1.0 / 0.6 - 0.9 cm LVPW Diastolic Thickness 1.2 cm 0.6 - 1.0 / 0.6 - 0.9 cm LV Relative Wall Thickness 0.6 RV Internal Dim ED PLAX 3.0 cm LVOT Diameter 1.9 cm LA Systolic Diameter LX 3.1 cm 3.0 - 4.0 / 2.7 - 3.8 cm LV Ejection Fraction MOD 4C 68.4 % LV Cardiac Index MOD 4C 4005.1 cm/minm LV Ejection Fraction 4C AL 69.5 % LV Cardiac Index 4C AL 4228.1 cm/minm M-MODE Aortic Root Diameter MM 2.7 cm AV Cusp Separation MM 2.1 cm DOPPLER AV Peak Velocity 138.0 cm/s AV Peak Gradient 7.6 mmHg LVOT Peak Velocity 98.7 cm/s LVOT Peak Gradient 3.9 mmHg AV Area Cont Eq pk 2.0 cm MV Area PHT 4.0 cm Mitral E Point Velocity 80.0 cm/s Mitral A Point Velocity 65.6 cm/s Mitral E to A Ratio 1.2 LV E' Lateral Velocity 13.4 cm/s Mitral E to LV E' Lateral Ratio 6.0 LV E' Septal Velocity 9.5 cm/s Mitral E to LV E' Septal Ratio 8.5 TR Peak Velocity 246.0 cm/s TR Peak Gradient 24.2 mmHg Right Atrial Pressure 10.0 mmHg Pulmonary Artery Systolic Pressu 34.2 mmHg Right Ventricular Systolic Press 34.2 mmHg PV Peak Velocity 95.0 cm/s PV Peak Gradient 3.6 mmHg FINDINGS LEFT VENTRICLE The left ventricular systolic function is normal with an estimated ejection fraction in the range of 60-65%. Normal left ventricular size. Mild concentric left ventricular hypertrophy. No regional wall motion abnormalities are present. RIGHT VENTRICLE Normal right ventricular size and systolic function. LEFT ATRIUM The left atrial size is normal. RIGHT ATRIUM The right atrial size is normal. ATRIAL SEPTUM Normal atrial septal thickness without atrial level shunting by limited color doppler interrogation. AORTA The aortic root and proximal ascending aorta are normal in size on limited imaging. MITRAL VALVE Mild thickening of the mitral valve leaflets. Trace mitral valve regurgitation. No mitral valve stenosis. AORTIC VALVE Trileaflet aortic valve. No aortic valve stenosis or regurgitation. TRICUSPID VALVE Structurally normal tricuspid valve. There is trace tricuspid valve regurgitation. The estimated pulmonary arterial pressure is 34.2 mmHg. PULMONARY VALVE No pulmonary valve regurgitation or stenosis. VESSELS The inferior vena cava is normal in size. PERICARDIUM No pericardial effusion. Emmett Davila DO (Electronically Signed) Final Date:21 January 2017 14:20
--- NOTE | 2017-01-21 14:35 | HHI.DS ---
Discharge Summary Admission Date Jan 20, 2017 at 16:21 Discharge Date: Jan 21, 2017 Admitting Diagnosis symptomatic anemia (1) Vaginal bleeding ICD Code: N93.9 - Abnormal uterine and vaginal bleeding, unspecified Status: Acute (2) Pelvic pain ICD Code: R10.2 - Pelvic and perineal pain Status: Acute (3) Symptomatic anemia ICD Code: D64.9 - Anemia, unspecified Status: Acute Procedures blood transfusion Brief History - From Admission Patient is a 37-year-old female. Who presented to the emergency department with increased dyspnea and chest discomfort from feeling short of breath over the past several days. Patient in the past has required blood transfusions for low hemoglobin. She's had issues with uterine bleeding. Patient states that she's had hemoglobins as low as 4 in the past. Last transfusion was about 2 months ago. Patient states that her last period ended 2 days ago but was heavy with clots. Patient denies any abdominal pain or vaginal pain or discharge. She has no fever or chills. Patient states that she is how she normally feels when she is anemic. Chest pain is minimal she has shortness of breath. With any exertion. She has had no nausea or vomiting. She has had no urinary symptoms does not have any no known drug allergies that she knows of CBC/BMP: 01/21/17 0438 01/21/17 0438 Significant Findings Laboratory Tests Test 01/20/17 14:40 01/20/17 14:45 01/20/17 18:15 01/21/17 04:38 Urine Turbidity HAZY (CLEAR) Urine Protein 30 mg/dL (NEG-TRACE) Urine Mucus MANY /lpf (OCC) Red Blood Count 2.80 MIL/MM3 (4.00-5.30) 3.31 MIL/MM3 (4.00-5.30) Hemoglobin 6.4 GM/DL (11.6-15.3) 8.4 GM/DL (11.6-15.3) Hematocrit 20.4 % (35.0-46.0) 25.1 % (35.0-46.0) Mean Corpuscular Volume 72.7 FL (80.0-100.0) 75.8 FL (80.0-100.0) Mean Corpuscular Hemoglobin 22.8 PG (27.0-34.0) 25.3 PG (27.0-34.0) Mean Corpuscular Hemoglobin Concent 31.3 % (32.0-36.0) Red Cell Distribution Width 23.4 % (11.6-17.2) 22.3 % (11.6-17.2) Platelet Count 468 TH/MM3 (150-450) Platelet Estimate HIGH (NORMAL) Ovalocytes 1+ (NORMAL) Activated Partial Thromboplast Time 21.9 SEC (24.3-30.1) Albumin 3.2 GM/DL (3.4-5.0) 3.0 GM/DL (3.4-5.0) Iron Level 11 MCG/DL (50-170) Percent Iron Saturation 3.0 % (20-50) Ferritin 3 NG/ML (8-252) Troponin I LESS THAN 0.02 NG/ML Neutrophils (%) (Auto) 78.7 % (16.0-70.0) Random Glucose 113 MG/DL (74-106) Calcium Level 8.3 MG/DL (8.5-10.1) Total Bilirubin 1.1 MG/DL (0.2-1.0) Hospital Course Mrs. Ceballos is a 37-year-old female. She was admitted secondary to anemia. Anemia is a recurrent problem for her and she has needed recurrent transfusions. Etiology is related to menorrhagia. Transfusion is provided and her hemoglobin has increased from 6.4 to 8.4. Currently patient feels better and is stable for discharge home today with continued outpatient follow-up with gynecology. Pt Condition on Discharge: Stable Discharge Disposition: Discharge Home Discharge Time: <= 30 minutes Discharge Instructions DIET: Follow Instructions for: As Tolerated, No Restrictions Activities you can perform: Regular-No Restrictions Follow up Referrals: [facility] BLENDER - 2 Weeks PCP Follow-up - 2 Weeks Continued Medications: Tramadol (Tramadol) 50 Mg Tab 50 MG PO Q6H PRN for PAIN, #20 TAB 0 Refills Chuck Deleon MD Jan 21, 2017 14:35
[2017-01-22 15:56] LABS: HEMOGLOBIN A1a 1.8 %; HEMOGLOBIN A1b 0.7 %; HEMOGLOBIN Ao 86.2 %; HEMOGLOBIN F 0.8 %; HEMOGLOBIN LA1C 1.8 %; HEMOGLOBIN P3 3.2 %
== END 2017-01-21 15:31 | disposition home or self-care (01) ==
LOC: NEPD 14:02 → NEDA 16:21 → NEPGCP 18:37
PROVIDERS: ADMIT Hospitalist; ATTEND Hospitalist
DX: D64.89 Other specified anemias (principal); N93.8 Other specified abnormal uterine and vaginal bleeding; R07.89 Other chest pain; R06.02 Shortness of breath; R10.2 Pelvic and perineal pain
CPT/HCPCS: 36430; 80053; 81001; 82550; 82607; 82728; 82746; 82747; 83036; 83540; 83550; 83615; 83735; 84100; 84439; 84443; 84484; 84703; 85025; 85044; 85610; 85730; 86077; 86850; 86870; 86880; 86900; 86901; 86902; 86920; 86922; 93005; 93306; 96360; 96361; 99285; G0378; J7050; P9016

== ENCOUNTER 2017-04-18 13:53 | Day surgery (SDC) | payer MEDICAID ==
--- NOTE | 2017-04-18 15:23 | RADRPT ---
EXAM DATE/TIME: 04/18/2017 00:00 [place] COMPARISON : No previous studies available for comparison. INDICATIONS : consult for ufe OBJECTIVE: Temperature: 98.6 Heart Rate: 87 Blood Pressure: 136/78 Respiratory: 18 Oximetry: 100% PNEUMONIA VACCINE: NO HISTORY OF PRESENT ILLNESS: 37-year-old female with menorrhagia. This is been ongoing for several years. The patient has had mackenzie ral episodes of hospitalizations and resulting anemia requiring blood transfusions. Most recently 2-3 months ago. The patient has tried hormonal therapy. This has been unsuccessful. The patient underwen t myomectomy 5 years ago. This helped for a period of time but the abnormality has returned. The magdaleno ent had an IUD placed and is unsure if it is still present. She has one child. She is unsure if she w ishes to conceive in the future. Prior curettage was unremarkable. Pap smears have been normal per he r report. PAST MEDICAL HISTORY : 1. fibroids 2. 3. PAST SURGICAL HISTORY : 1. <<myomectomy 5 years ago SOCIAL HISTORY : Social alcohol use. Tobacco;none. ALLERGIES: 1. NKDA MEDICATIONS: 1. None. PHYSICAL EXAMINATION: General: Patient is awake and alert in no acute distress. Cardiovascular: Regular rate and rhythm Respiratory: Clear to auscultation AUTOMATION APPLICATION ENGINEER: Deferred to Dr. Brink's H&P. IMAGING STUDIES: MRI of the pelvis December 05, 2016 from [facility]. This study shows multiple fibroids with a dominant submucosal fibroid measuring approximately 7 cm in size. No pedunculated fibroids. ASSESSMENT: Menorrhagia with large subserosal fibroid. I discussed with the patient uterine artery embolization i ncluding the risks, benefits, and alternatives. She stated she fully understood. Her questions were a nswered. PLAN: Uterine artery embolization TIME SPENT: <<20 minutes>> Vinny Vasquez Jr., MD on April 18, 2017 at 14:45 Board Certified Radiologist. This report was verified electronically.
== END 2017-04-18 14:48 | disposition home or self-care (01) ==
LOC: HROP 13:53 → HRIP 13:57 → HROP 14:48
PROVIDERS: ATTEND Obstetrics & Gynecology Gynecology
DX: D25.2 Subserosal leiomyoma of uterus (principal); N92.0 Excessive and frequent menstruation with regular cycle
CPT/HCPCS: 99213; G0463